=== PATIENT | female | born 1995 | race Caucasian/White ===

== ENCOUNTER 2021-09-01 11:10 | Emergency (ER) | payer BC, MEDICAID ==
[2021-09-01 11:45] VITALS: BP 126/86; PULSE 85
[2021-09-01] MEDS ORDERED: Sodium Chloride 0.9% 1,000 ML IV ONE ×2 (12:28→14:07)
[2021-09-01] MEDS ORDERED: Ketorolac 15 MG/ML SDV IVPUSH ONE (12:49)
== END 2021-09-01 16:00 | disposition home or self-care (01) ==
LOC: JD.ED 11:10
DX: K52.9 Noninfective gastroenteritis and colitis, unspecified (principal); Z72.0 Tobacco use
CPT/HCPCS: 36415; 80053; 83605; 83690; 85025; 96374; 99284; J1885; J7030

== ENCOUNTER 2021-09-02 20:42 | Emergency (ER) | payer BC ==
[2021-09-02 21:18] VITALS: PULSE 120
[2021-09-02] MEDS ORDERED: Ondansetron 4 MG/2 ML SDV IVPUSH ONE (21:43)
[2021-09-02] MEDS ORDERED: Sodium Chloride 0.9% 1,000 ML IV ONE (21:43)
[2021-09-02 21:45] VITALS: BP 135/95
[2021-09-02] MEDS ORDERED: LORazepam 2 MG/ML SDV IVPUSH STA (21:48)
== END 2021-09-03 01:40 | disposition home or self-care (01) ==
LOC: JD.ED 20:42
DX: R56.9 Unspecified convulsions (principal); F10.20 Alcohol dependence, uncomplicated; Y90.5 Blood alcohol level of 100-119 mg/100 ml; Z72.0 Tobacco use
CPT/HCPCS: 36415; 70450; 80053; 80306; 80307; 81001; 81025; 83690; 83735; 84100; 85007; 85027; 87086; 96374; 96375; 99284; J2060; J2405; J7030

== ENCOUNTER 2021-10-24 22:19 | Emergency (ER) | payer BC ==
[2021-10-24 22:54] VITALS: BP 139/105; PULSE 74
[2021-10-25] MEDS ORDERED: Nitrofurantoin Monohydrate/Macrocrystalline 100 MG Cap PO STA (00:31)
== END 2021-10-25 01:25 | disposition home or self-care (01) ==
LOC: JD.ED 22:19
DX: F45.8 Other somatoform disorders (principal); N30.00 Acute cystitis without hematuria; Z72.0 Tobacco use; Z79.899 Other long term (current) drug therapy
CPT/HCPCS: 36415; 36600; 71046; 80053; 81001; 81025; 82803; 83735; 83880; 84443; 84484; 85007; 85027; 85379; 87086; 93005; 99284; A9270

== ENCOUNTER 2022-01-05 20:17 | Emergency (ER) | payer BC ==
[2022-01-05] MEDS ORDERED: Sodium Chloride 0.9% 1,000 ML IV STA ×2 (20:49→22:42)
[2022-01-05] MEDS ORDERED: Ondansetron 4 MG/2 ML SDV IVPUSH ONE (20:49)
[2022-01-05] MEDS ORDERED: Sodium Chloride 0.9% 10 ML Syringe FLUSH PRN (20:49)
[2022-01-05] MEDS ORDERED: HYDROmorphone 0.5 MG/0.5 ML Syringe IVPUSH ONE (21:21)
[2022-01-06] MEDS ORDERED: Sodium Chloride 0.9% 1,000 ML IV SCH (00:15)
[2022-01-06] MEDS ORDERED: Ondansetron 4 MG/2 ML SDV IVPUSH ONE (00:37)
[2022-01-06] MEDS ORDERED: Iopamidol 612 MG/ML 100 ML Bottle IVPUSH ONE ×2 (01:19→01:21)
[2022-01-06] MEDS ORDERED: Sodium Chloride 0.9% 10 ML Syringe FLUSH ONE (01:19)
[2022-01-06] MEDS ORDERED: Ampicillin/Sulbactam Na 1.5 GM in Sodium Chloride 0.9% 100 ML IV STA (04:12)
[2022-01-06 06:35] VITALS: BP 129/89; PULSE 81
== END 2022-01-06 06:35 ==
LOC: JD.ED 20:17
DX: K85.90 Acute pancreatitis without necrosis or infection, unspecified (principal); J98.2 Interstitial emphysema; D69.6 Thrombocytopenia, unspecified; R94.5 Abnormal results of liver function studies; F17.210 Nicotine dependence, cigarettes, uncomplicated; Z20.822 Contact with and (suspected) exposure to COVID-19; Z86.16 Personal history of COVID-19
CPT/HCPCS: 36415; 71250; 71250-26; 74177; 74177-26; 76705; 76705-26; 80053; 80307; 82977; 83690; 85025; 86140; 96361; 96365; 96375; 96376; 99285; 99285-25; J0295; J1170; J2405; J3490; J7030; Q9967; U0002

== ENCOUNTER 2022-06-12 11:35 | Emergency (ER) | payer BC, MEDICAID ==
[2022-06-12 11:42] VITALS: BP 123/76; PULSE 98
[2022-06-12 12:51] LABS: ESTIMATED GFR 104 mL/min (>60)
== END 2022-06-12 12:50 | disposition left against medical advice (07) ==
LOC: JD.ED 11:35
DX: R07.89 Other chest pain (principal); R06.02 Shortness of breath; F17.210 Nicotine dependence, cigarettes, uncomplicated; Z88.1 Allergy status to other antibiotic agents; Z86.16 Personal history of COVID-19
CPT/HCPCS: 36415; 71046; 71046-26; 80053; 84484; 85025; 85379; 93005; 99285

== ENCOUNTER 2022-07-01 04:26 | Inpatient (IN) | payer SELFPAY ==
[2022-07-01] MEDS ORDERED: Lactated Ringers 1,000 ML ONE (05:09)
[2022-07-01] MEDS ORDERED: LORazepam 2 MG/ML SDV IV ONE (05:20)
[2022-07-01] MEDS ORDERED: Ondansetron 4 MG/2 ML SDV IVPUSH ONE (05:24)
[2022-07-01] MEDS ORDERED: Famotidine 20 MG/2 ML SDV IVPUSH ONE (05:25)
[2022-07-01] MEDS ORDERED: Lactated Ringers 1,000 ML IV ONE (05:30)
[2022-07-01 06:09] LABS: ESTIMATED GFR 79 mL/min (>60)
[2022-07-01 06:13] LABS: ACETAMINOPHEN 0 ug/mL (10-30)
[2022-07-01 08:12] LABS: CORONAVIRUS COVID-19 NAA NEGATIVE (NEGATIVE)
[2022-07-01] MEDS ORDERED: Potassium Chloride 20 MEQ Tab.ER PO ONE (09:06)
[2022-07-01] MEDS ORDERED: Potassium Chloride 10 MEQ in Premix Bag 1 BAG IV ONE ×2 (09:13→09:14)
[2022-07-01] MEDS ORDERED: LORazepam 2 MG/ML SDV IVPUSH ONE (10:25)
[2022-07-01] MEDS ORDERED: Albuterol/Ipratropium 3.0-0.5 MG/3 ML Neb Soln NEB PRN (10:57)
[2022-07-01] MEDS ORDERED: Ondansetron 4 MG/2 ML SDV IV PRN (10:57)
[2022-07-01] MEDS ORDERED: Thiamine 100 MG in Sodium Chloride 0.9% 50 ML IV SCH (11:00)
[2022-07-01] MEDS: LORazepam 2 MG/ML SDV IV SCH ×2 (12:30→15:09)
[2022-07-01] MEDS: Sodium Chloride 0.9% 1,000 ML IV SCH ×2 (12:30→21:28)
[2022-07-01] MEDS: Thiamine 200 MG/2 ML MDV IVPUSH SCH (12:49)
[2022-07-01] MEDS: Pantoprazole 40 MG Tab.CR PO SCH (12:49)
[2022-07-01] MEDS: Nicotine 14 MG/24 Hr Patch TRDERM SCH (13:19)
[2022-07-01] MEDS: Potassium Chloride 10 MEQ in Premix Bag 1 BAG IV SCH ×4 (13:20→16:50)
[2022-07-01] MEDS: traZODone 50 MG Tab PO PRN (21:26)
[2022-07-01] MEDS: Acetaminophen 325 MG Tab PO PRN (21:26)
[2022-07-02] MEDS ORDERED: Magnesium Sulfate/Water 2 GM in Premix Bag 1 BAG IV ONE (06:33)
[2022-07-02] MEDS: Sodium Chloride 0.9% 1,000 ML IV SCH (07:41)
[2022-07-02] MEDS: Nicotine 14 MG/24 Hr Patch TRDERM SCH (08:29)
[2022-07-02] MEDS: Pantoprazole 40 MG Tab.CR PO SCH (08:29)
[2022-07-02] MEDS: Thiamine 200 MG/2 ML MDV IVPUSH SCH (08:29)
[2022-07-02] MEDS: Acetaminophen 325 MG Tab PO PRN (19:20)
[2022-07-02] MEDS: traZODone 50 MG Tab PO PRN (22:06)
[2022-07-03] MEDS ORDERED: Magnesium Sulfate/Water 2 GM in Premix Bag 1 BAG IV ONE (05:50)
[2022-07-03] MEDS: Thiamine 200 MG/2 ML MDV IVPUSH SCH (09:59)
[2022-07-03] MEDS: Nicotine 14 MG/24 Hr Patch TRDERM SCH (09:59)
[2022-07-03] MEDS: Pantoprazole 40 MG Tab.CR PO SCH (10:00)
[2022-07-03 11:14] VITALS: BP 113/64; PULSE 70
== END 2022-07-03 10:19 | disposition home or self-care (01) | DRG 433 ==
LOC: JD.ED 04:26 → JD.MS 10:51
PROVIDERS: ADMIT Internal Medicine; ATTEND Internal Medicine
DX: K70.10 Alcoholic hepatitis without ascites (principal); F10.132 Alcohol abuse with withdrawal with perceptual disturbance; F41.9 Anxiety disorder, unspecified; J45.909 Unspecified asthma, uncomplicated; E83.42 Hypomagnesemia; F17.210 Nicotine dependence, cigarettes, uncomplicated; M54.9 Dorsalgia, unspecified; H54.7 Unspecified visual loss; E87.6 Hypokalemia; Z20.822 Contact with and (suspected) exposure to COVID-19; G89.4 Chronic pain syndrome; F32.A Depression, unspecified; Z88.1 Allergy status to other antibiotic agents; Z88.8 Allergy status to other drugs, medicaments and biological substances; Z86.16 Personal history of COVID-19; Z86.19 Personal history of other infectious and parasitic diseases; Z98.890 Other specified postprocedural states
CPT/HCPCS: 0240U; 36415; 76705; 76705-26; 80053; 80143; 80179; 80306; 80307; 81025; 82803; 82947; 82977; 83735; 84100; 85025; 85027; 85610; 85730; 93005; A9270-GY; J2060; J2405; J3411; J3475; J3480; J3490; J7030; J7120

== ENCOUNTER 2022-09-18 16:26 | Emergency (ER) | payer SELFPAY ==
[2022-09-18 16:42] VITALS: BP 128/89; PULSE 99
[2022-09-18] MEDS ORDERED: Albuterol/Ipratropium 3.0-0.5 MG/3 ML Neb Soln NEB ONE (17:23)
[2022-09-18 18:21] LABS: ESTIMATED GFR 71 mL/min (>60)
[2022-09-18] MEDS ORDERED: Sodium Chloride 0.9% 1,000 ML IV STA (18:26)
[2022-09-18 19:33] LABS: CORONAVIRUS COVID-19 NAA NEGATIVE (NEGATIVE)
== END 2022-09-18 19:44 | disposition left against medical advice (07) ==
LOC: JD.ED 16:26
DX: J20.9 Acute bronchitis, unspecified (principal); F10.129 Alcohol abuse with intoxication, unspecified; J45.909 Unspecified asthma, uncomplicated; F17.210 Nicotine dependence, cigarettes, uncomplicated; Z88.1 Allergy status to other antibiotic agents; Z88.8 Allergy status to other drugs, medicaments and biological substances; Z79.899 Other long term (current) drug therapy; Z20.822 Contact with and (suspected) exposure to COVID-19
CPT/HCPCS: 0240U; 36415; 71046; 80053; 80307; 84484; 85025; 85379; 86140; 93005; 94640; 96360; 99285; J7030; J7620-GY

== ENCOUNTER 2023-01-02 19:55 | Emergency (ER) | payer MEDICAID ==
[2023-01-02] MEDS ORDERED: Sodium Chloride 0.9% 1,000 ML IV ONE (20:27)
[2023-01-02 20:49] LABS: BASOPHILS ABSOLUTE AUTO 0.01 K/mm3 (0.01-0.08); BASOPHILS PERCENT AUTO 0.1 % (0.1-1.2); EOSINOPHILS ABSOLUTE AUTO 0.21 K/mm3 (0.04-0.36); HEMATOCRIT 39.9 % (34.1-44.9); HEMOGLOBIN 12.9 gm/dl (11.2-15.7); IMMATURE GRAN ABSOLUTE AUTO 0.02 K/mm3 (0.00-0.10); IMMATURE GRAN PERCENT AUTO 0.3 % (<=1.0); LYMPHOCYTES ABSOLUTE AUTO 3.09 K/mm3 (1.18-3.74); LYMPHOCYTES PERCENT AUTO 44.2 % (19.3-51.7); MEAN CORPUSCULAR HEMOGLOBIN 29.9 pg (25.6-32.2); MEAN CORPUSCULAR HGB CONC 32.3 g/dl (32.2-35.5); MEAN CORPUSCULAR VOLUME 92.6 fl (79.4-94.8); MEAN PLATELET VOLUME 9.4 fl (9.4-12.3); MONOCYTES ABSOLUTE AUTO 0.33 K/mm3 (0.24-0.36); MONOCYTES PERCENT AUTO 4.7 % (4.7-12.5); NEUTROPHILS ABSOLUTE AUTO 3.33 K/mm3 (1.56-6.13); NEUTROPHILS PERCENT AUTO 47.7 % (34.0-71.1); PLATELET COUNT,PLT 161 K/mm3 (182-369); RED BLOOD CELL COUNT 4.31 M/mm3 (3.98-5.22); WHITE BLOOD CELL COUNT,WBC 6.99 K/mm3 (3.98-10.04)
[2023-01-02 21:07] LABS: PROTHROMBIN TIME 10.7 SECONDS (9.7-12.0)
[2023-01-02 21:12] LABS: A/G RATIO 0.9 (1-2); ALBUMIN 3.5 g/dl (3.4-5.0); ANION GAP 16.5 (5-15); BILIRUBIN TOTAL 0.3 mg/dL (0.2-1.0); BUN/CREATININE RATIO 8.3 (14-18); CALCIUM 8.2 mg/dL (8.5-10.1); CREATININE 0.6 mg/dL (0.55-1.02); EST CRCL DRUG DOSING (CG) 101.16 mL/min; ETHANOL BLOOD MEDICAL 0.54 gm% (0.00); POTASSIUM,K 3.5 mEq/L (3.5-5.1); PROTEIN TOTAL,TP 7.5 g/dl (6.4-8.2)
[2023-01-02 22:58] LABS: APPEARANCE,URINE SLT CLOUDY (Clear); BILIRUBIN,URINE NEGATIVE (Negative); COLOR,URINE PINK (Yellow); GLUCOSE,URINE NEGATIVE (Negative); KETONES,URINE NEGATIVE (Negative); LEUKOCYTE ESTERASE,URINE NEGATIVE (Negative); NITRITE,URINE NEGATIVE (Negative); OCCULT BLOOD,URINE 2+ (Negative); PROTEIN,URINE NEGATIVE (Negative); UROBILINOGEN,URINE 0.2 (0.2-1.0)
[2023-01-02 23:09] LABS: BACTERIA,URINE FEW /hpf (FEW); MUCUS,URINE NOT SEEN /hpf (FEW); RBC,URINE 50-75 /hpf (0-5); SQUAMOUS EPITHELIAL CELLS,UR 0-5 /hpf (0-5); WBC,URINE 0-5 /hpf (0-5)
[2023-01-03 06:06] VITALS: BP 106/87; PULSE 88
== END 2023-01-03 05:45 | disposition home or self-care (01) ==
LOC: JD.ED 19:55
DX: F10.10 Alcohol abuse, uncomplicated (principal); J45.909 Unspecified asthma, uncomplicated; Y90.0 Blood alcohol level of less than 20 mg/100 ml; Z79.899 Other long term (current) drug therapy; Z88.8 Allergy status to other drugs, medicaments and biological substances; Z88.4 Allergy status to anesthetic agent; Z88.1 Allergy status to other antibiotic agents
CPT/HCPCS: 36415; 70450; 80053; 80143; 80179; 80307; 81001; 81025; 85025; 85610; 93005; 96360; 99285; J7030; 93010; 99284

== ENCOUNTER 2023-05-24 16:55 | Emergency (ER) | payer MEDICAID ==
[2023-05-24 17:28] VITALS: BP 123/81
[2023-05-24] MEDS ORDERED: predniSONE 20 MG Tab PO ONE (17:44)
[2023-05-24 19:49] LABS: CORONAVIRUS COVID-19 NAA NEGATIVE (NEGATIVE); INFLUENZA A NAA NEGATIVE (NEGATIVE); RESPIRATORY SYNCYTIAL VIR NAA NEGATIVE (NEGATIVE)
[2023-05-24] MEDS ORDERED: Albuterol 0.083% 2.5 MG/3 ML Neb Soln NEB ONE (19:57)
[2023-05-24 20:32] VITALS: PULSE 86
== END 2023-05-24 20:12 | disposition home or self-care (01) ==
LOC: JD.ED 16:55
DX: J45.21 Mild intermittent asthma with (acute) exacerbation (principal); B34.9 Viral infection, unspecified; Z88.8 Allergy status to other drugs, medicaments and biological substances; Z88.1 Allergy status to other antibiotic agents; Z88.4 Allergy status to anesthetic agent; Z20.822 Contact with and (suspected) exposure to COVID-19
CPT/HCPCS: 0241U; 71046; 99285; J7512; J7620-GY

== ENCOUNTER 2023-08-27 13:35 | Emergency (ER) | payer MEDICAID ==
[2023-08-27] MEDS: Pseudoephedrine 30 MG Tab PO ONE (15:08)
[2023-08-27 18:25] VITALS: BP 128/90; PULSE 90
== END 2023-08-27 15:16 | disposition home or self-care (01) ==
LOC: EDUNIT# → EDBD → JD.ED 13:35
DX: H69.91 Unspecified Eustachian tube disorder, right ear (principal); J45.909 Unspecified asthma, uncomplicated; Z88.1 Allergy status to other antibiotic agents; Z88.8 Allergy status to other drugs, medicaments and biological substances; Z79.51 Long term (current) use of inhaled steroids; F17.210 Nicotine dependence, cigarettes, uncomplicated
CPT/HCPCS: 99283; A9270

== ENCOUNTER 2024-01-12 10:59 | Emergency (ER) | payer MEDICAID ==
[2024-01-12 11:42] LABS: BASOPHILS PERCENT AUTO 0.1 % (0.0-1.0); EOSINOPHILS ABSOLUTE AUTO 0.2 K/mm3 (0.0-0.4); EOSINOPHILS PERCENT AUTO 2.3 % (0.0-6.0); HEMATOCRIT 37.6 % (37.0-47.0); HEMOGLOBIN 13.5 gm/dl (12.0-16.0); IMMATURE GRAN ABSOLUTE AUTO 0.05 K/mm3 (0.00-0.05); IMMATURE GRAN PERCENT AUTO 0.6 % (0.0-0.4); LYMPHOCYTES ABSOLUTE AUTO 1.9 K/mm3 (1.0-4.8); LYMPHOCYTES PERCENT AUTO 22.6 % (24.0-44.0); MEAN CORPUSCULAR HEMOGLOBIN 30.3 pg (28.0-32.0); MEAN CORPUSCULAR HGB CONC 35.9 g/dl (32.0-36.0); MEAN CORPUSCULAR VOLUME 84.5 fl (83.0-99.0); MEAN PLATELET VOLUME 9.6 fl (9.4-12.3); MONOCYTES ABSOLUTE AUTO 0.6 K/mm3 (0.0-0.8); MONOCYTES PERCENT AUTO 7.1 % (0.0-8.0); NEUTROPHILS ABSOLUTE AUTO 5.7 K/mm3 (1.8-7.7); NEUTROPHILS PERCENT AUTO 67.3 % (41.0-71.0); PLATELET COUNT,PLT 217 K/mm3 (150-400); RED BLOOD CELL COUNT 4.45 M/mm3 (4.10-5.30); WHITE BLOOD CELL COUNT,WBC 8.42 K/mm3 (3.9-11.3)
[2024-01-12 11:57] LABS: SLIDE REVIEW NORMAL SMEAR
[2024-01-12 12:25] LABS: A/G RATIO 0.8 (1-2); ALBUMIN 3.3 g/dl (3.4-5.0); ANION GAP 13.4 (5-15); BILIRUBIN TOTAL 0.5 mg/dL (0.2-1.0); BUN/CREATININE RATIO 2.9 (14-18); CALCIUM 8.9 mg/dL (8.5-10.1); CREATININE 0.7 mg/dL (0.55-1.02); EST CRCL DRUG DOSING (CG) 85.94 mL/min; POTASSIUM,K 3.4 mEq/L (3.5-5.1); PROTEIN TOTAL,TP 7.3 g/dl (6.4-8.2)
[2024-01-12 13:43] LABS: C. TRACHOMATIS BY PCR NOT DETECTED; N. GONORRHOEAE BY PCR NOT DETECTED
[2024-01-12 14:17] LABS: APPEARANCE,URINE SLT CLOUDY (Clear); BILIRUBIN,URINE NEGATIVE (Negative); COLOR,URINE DARK YELLOW (Yellow); GLUCOSE,URINE NEGATIVE (Negative); KETONES,URINE NEGATIVE (Negative); LEUKOCYTE ESTERASE,URINE NEGATIVE (Negative); NITRITE,URINE NEGATIVE (Negative); OCCULT BLOOD,URINE NEGATIVE (Negative); PROTEIN,URINE 1+ (Negative); UROBILINOGEN,URINE >=8.0 (0.2-1.0)
[2024-01-12 14:25] LABS: BACTERIA,URINE FEW /hpf (FEW); EPITHELIAL CELLS,URINE 0-5 /hpf (0-5); HYALINE CASTS,URINE 0-5 /lpf (0-5); MUCUS,URINE MANY /hpf (FEW); RBC,URINE 0-5 /hpf (0-5); WBC,URINE 0-5 /hpf (0-5)
[2024-01-12 17:58] VITALS: BP 125/90; PULSE 86
== END 2024-01-12 15:22 | disposition home or self-care (01) ==
LOC: JD.ED 10:59
DX: O46.8X1 Other antepartum hemorrhage, first trimester (principal); O99.891 Other specified diseases and conditions complicating pregnancy; R10.9 Unspecified abdominal pain; O23.591 Infection of other part of genital tract in pregnancy, first trimester; Z88.1 Allergy status to other antibiotic agents; Z88.8 Allergy status to other drugs, medicaments and biological substances; Z79.899 Other long term (current) drug therapy; Z3A.13 13 weeks gestation of pregnancy
CPT/HCPCS: 0352U; 36415; 76817; 80053; 81001; 83690; 84702; 85025; 86900; 86901; 87491; 87591; 99284

== ENCOUNTER 2024-02-07 09:08 | Emergency (ER) | payer MEDICAID ==
[2024-02-07 09:27] VITALS: BP 139/68; PULSE 115
[2024-02-07 10:34] LABS: BASOPHILS ABSOLUTE AUTO 0.1 K/mm3 (0.0-0.2); BASOPHILS PERCENT AUTO 0.4 % (0.0-1.0); EOSINOPHILS ABSOLUTE AUTO 0.1 K/mm3 (0.0-0.4); EOSINOPHILS PERCENT AUTO 0.9 % (0.0-6.0); HEMATOCRIT 39.1 % (37.0-47.0); HEMOGLOBIN 13.4 gm/dl (12.0-16.0); IMMATURE GRAN PERCENT AUTO 1.9 % (0.0-0.4); LYMPHOCYTES ABSOLUTE AUTO 3.1 K/mm3 (1.0-4.8); LYMPHOCYTES PERCENT AUTO 19.7 % (24.0-44.0); MEAN CORPUSCULAR HEMOGLOBIN 29.8 pg (28.0-32.0); MEAN CORPUSCULAR HGB CONC 34.3 g/dl (32.0-36.0); MEAN CORPUSCULAR VOLUME 87.1 fl (83.0-99.0); MEAN PLATELET VOLUME 8.8 fl (9.4-12.3); MONOCYTES ABSOLUTE AUTO 0.4 K/mm3 (0.0-0.8); MONOCYTES PERCENT AUTO 2.7 % (0.0-8.0); NEUTROPHILS ABSOLUTE AUTO 11.6 K/mm3 (1.8-7.7); NEUTROPHILS PERCENT AUTO 74.4 % (41.0-71.0); PLATELET COUNT,PLT 284 K/mm3 (150-400); RED BLOOD CELL COUNT 4.49 M/mm3 (4.10-5.30); WHITE BLOOD CELL COUNT,WBC 15.57 K/mm3 (3.9-11.3)
[2024-02-07] MEDS: Acetaminophen 325 MG Tab PO ONE (11:04)
[2024-02-07 11:17] LABS: A/G RATIO 0.9 (1-2); ALBUMIN 3.4 g/dl (3.4-5.0); ANION GAP 21.6 (5-15); BILIRUBIN TOTAL 0.4 mg/dL (0.2-1.0); BUN/CREATININE RATIO 6.7 (14-18); CALCIUM 8.3 mg/dL (8.5-10.1); CREATININE 0.6 mg/dL (0.55-1.02); EST CRCL DRUG DOSING (CG) 100.27 mL/min; ETHANOL BLOOD MEDICAL 0.35 gm% (0.00); POTASSIUM,K 3.6 mEq/L (3.5-5.1); PROTEIN TOTAL,TP 7.3 g/dl (6.4-8.2)
[2024-02-07] MEDS: Nicotine 21 MG/24 Hr Patch TRDERM ONE (11:52)
== END 2024-02-07 12:46 | disposition home or self-care (01) ==
LOC: JD.ED 09:08
DX: O9A.212 Injury, poisoning and certain other consequences of external causes complicating pregnancy, second trimester (principal); S80.11XA Contusion of right lower leg, initial encounter; S09.90XA Unspecified injury of head, initial encounter; J45.909 Unspecified asthma, uncomplicated; Z88.1 Allergy status to other antibiotic agents; Z88.8 Allergy status to other drugs, medicaments and biological substances; Z88.4 Allergy status to anesthetic agent; Z3A.16 16 weeks gestation of pregnancy; W19.XXXA Unspecified fall, initial encounter
CPT/HCPCS: 36415; 70450; 70450-26; 73552-26-RT; 73552-RT; 76815; 76815-26; 80053; 80307; 85025; 99284; A9270-GY

== ENCOUNTER 2024-02-16 17:50 | Emergency (ER) | payer MEDICAID ==
[2024-02-16] MEDS ORDERED: Sodium Chloride 0.9% 10 ML Syringe FLUSH PRN (18:25)
[2024-02-16 18:55] LABS: BASOPHILS PERCENT AUTO 0.3 % (0.0-1.0); EOSINOPHILS ABSOLUTE AUTO 0.2 K/mm3 (0.0-0.4); EOSINOPHILS PERCENT AUTO 1.1 % (0.0-6.0); HEMATOCRIT 38.5 % (37.0-47.0); HEMOGLOBIN 13.1 gm/dl (12.0-16.0); IMMATURE GRAN ABSOLUTE AUTO 0.07 K/mm3 (0.00-0.05); IMMATURE GRAN PERCENT AUTO 0.5 % (0.0-0.4); LYMPHOCYTES ABSOLUTE AUTO 3.5 K/mm3 (1.0-4.8); LYMPHOCYTES PERCENT AUTO 22.9 % (24.0-44.0); MEAN CORPUSCULAR HEMOGLOBIN 29.8 pg (28.0-32.0); MEAN CORPUSCULAR VOLUME 87.5 fl (83.0-99.0); MEAN PLATELET VOLUME 8.4 fl (9.4-12.3); MONOCYTES ABSOLUTE AUTO 0.6 K/mm3 (0.0-0.8); MONOCYTES PERCENT AUTO 3.7 % (0.0-8.0); NEUTROPHILS ABSOLUTE AUTO 10.9 K/mm3 (1.8-7.7); NEUTROPHILS PERCENT AUTO 71.5 % (41.0-71.0); PLATELET COUNT,PLT 259 K/mm3 (150-400); WHITE BLOOD CELL COUNT,WBC 15.21 K/mm3 (3.9-11.3)
[2024-02-16 18:59] LABS: APPEARANCE,URINE CLEAR (Clear); BILIRUBIN,URINE NEGATIVE (Negative); COLOR,URINE YELLOW (Yellow); GLUCOSE,URINE NEGATIVE (Negative); KETONES,URINE 2+ (Negative); LEUKOCYTE ESTERASE,URINE NEGATIVE (Negative); NITRITE,URINE NEGATIVE (Negative); OCCULT BLOOD,URINE NEGATIVE (Negative); PH,URINE 5.5 (5.0-8.0); PROTEIN,URINE TRACE (Negative); UROBILINOGEN,URINE 0.2 (0.2-1.0)
[2024-02-16 19:08] LABS: BACTERIA,URINE FEW /hpf (FEW); MUCUS,URINE MANY /hpf (FEW); RBC,URINE 0-5 /hpf (0-5); SQUAMOUS EPITHELIAL CELLS,UR 0-5 /hpf (0-5); WBC,URINE 0-5 /hpf (0-5)
[2024-02-16 19:16] LABS: A/G RATIO 0.8 (1-2); ALBUMIN 3.3 g/dl (3.4-5.0); ANION GAP 17.1 (5-15); BILIRUBIN TOTAL 0.3 mg/dL (0.2-1.0); BUN/CREATININE RATIO 6.3 (14-18); CREATININE 0.8 mg/dL (0.55-1.02); EST CRCL DRUG DOSING (CG) 75.2 mL/min; ETHANOL BLOOD MEDICAL 0.36 gm% (0.00); POTASSIUM,K 3.1 mEq/L (3.5-5.1); PROTEIN TOTAL,TP 7.4 g/dl (6.4-8.2)
[2024-02-16 20:46] VITALS: BP 110/64; PULSE 82
== END 2024-02-16 20:44 | disposition home or self-care (01) ==
LOC: JD.ED 17:50
DX: O99.891 Other specified diseases and conditions complicating pregnancy (principal); O99.312 Alcohol use complicating pregnancy, second trimester; O99.332 Smoking (tobacco) complicating pregnancy, second trimester; R10.31 Right lower quadrant pain; F10.920 Alcohol use, unspecified with intoxication, uncomplicated; F17.210 Nicotine dependence, cigarettes, uncomplicated; Z3A.17 17 weeks gestation of pregnancy; Z88.1 Allergy status to other antibiotic agents; Z88.8 Allergy status to other drugs, medicaments and biological substances
CPT/HCPCS: 36415; 76705; 76705-26; 80053; 80307; 81001; 83690; 85025; 86140; 99284